=== PATIENT | female | born 1965 | race Caucasian/White ===

== ENCOUNTER 2018-11-29 13:05 | Emergency (ER) | payer BC, OTHER ==
[2018-11-29 14:09] VITALS: BP 100/72
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
[2018-11-29] MEDS ORDERED: Ketorolac INJ* 60 MG/2 ML VIAL IM ONE (15:24)
== END 2018-11-29 16:12 | disposition home or self-care (01) ==
LOC: UCCORT 13:05
DX: M54.5 Low back pain (principal); Z88.0 Allergy status to penicillin
CPT/HCPCS: 81003; 96372; 99212; G0463; J1885

== ENCOUNTER 2019-01-30 14:24 | Emergency (ER) | payer OTHER ==
[2019-01-30 14:36] VITALS: BP 101/70
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
--- NOTE | 2019-02-01 07:56 | UC ---
- Progress Note Progress Note: PLEASE CALL PATIENT. ADVISE THAT URINE CULTURE GREW SERRATIA MARCESCENS WHICH IS RESISTANT TO MACROBID. STOP MACROBID AND START BACTRIM TWICE DAILY FOR 5 DAYS. ERX SENT TO [facility]. FOLLOW-UP IF NOT IMPROVING WITH THIS TREATMENT. Course/Dx - Diagnoses Provider Diagnoses: UTI (urinary tract infection) Discharge - Sign-Out/Discharge Documenting (check all that apply): Post-Discharge Follow Up All imaging exams completed and their final reports reviewed: No Studies - Discharge Plan Condition: Stable Disposition: HOME Prescriptions: Nitrofurantoin Monohyd/M-Cryst [Macrobid 100 mg Capsule] 100 mg PO BID 5 Days # 10 cap Sulfamethox/Trimethoprim DS* [Bactrim DS 800/160 TAB*] 1 tab PO BID #10 tab Patient Education Materials: Urinary Tract Infection in Women (DC) Referrals: JUAN Huddleston [Medical Doctor] - Additional Instructions: FOLLOW UP IF NOT BETTER IN 5-7 DAYS OR SOONER IF WORSE. - Billing Disposition and Condition Condition: STABLE Disposition: Home
== END 2019-01-30 15:33 | disposition home or self-care (01) ==
LOC: UCCORT 14:24
DX: N39.0 Urinary tract infection, site not specified (principal); Z88.0 Allergy status to penicillin; Z87.440 Personal history of urinary (tract) infections
CPT/HCPCS: 81003; 87077; 87086; 87186; 99212; G0463

== ENCOUNTER 2019-05-27 12:46 | Emergency (ER) | payer OTHER ==
[2019-05-27 13:00] VITALS: BP 99/59
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
== END 2019-05-27 13:43 | disposition home or self-care (01) ==
LOC: UCCORT 12:46
DX: J06.9 Acute upper respiratory infection, unspecified (principal); Z88.0 Allergy status to penicillin; F17.290 Nicotine dependence, other tobacco product, uncomplicated
CPT/HCPCS: 99211; G0463

== ENCOUNTER 2019-10-16 10:30 | Emergency (ER) | payer SELFPAY ==
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
== END 2019-10-16 12:00 | disposition home or self-care (01) ==
LOC: UCCORT 10:30
DX: R11.0 Nausea (principal); Z72.0 Tobacco use
CPT/HCPCS: 99211; G0463; Q3014